=== PATIENT | female | born 1985 | race Asian ===

== ENCOUNTER 2017-07-12 11:19 | Emergency (ER) | payer OTHER ==
[~2017-07-12] VITALS: Ht 160 cm; Wt 84.1 kg
[2017-07-12] MEDS ORDERED: IBUPROFEN 600 MG TABLET PO ONE (12:15)
[2017-07-12 13:05] VITALS: BP 123/71
== END 2017-07-12 13:06 | disposition home or self-care (01) ==
LOC: EMS 11:20
DX: T22.111A Burn of first degree of right forearm, initial encounter (principal); X11.8XXA Contact with other hot tap-water, initial encounter; Y93.89 Activity, other specified; Y92.89 Other specified places as the place of occurrence of the external cause; Y99.8 Other external cause status
CPT/HCPCS: 99282